=== PATIENT | male | born 1955 | race Caucasian/White ===

== ENCOUNTER 2018-10-30 10:40 | Observation (INO) | payer OTHER ==
[~2018-10-30] VITALS: Ht 167.6 cm; Wt 90.7 kg
[2018-11-11] MEDS ORDERED: ADULT ASPIRIN R81 MG PO (06:01)
[2018-11-11] MEDS ORDERED: HYDROCHLOROTHIA25 MG PO (06:02)
[2018-11-11] MEDS ORDERED: LISINOPRIL10 MG PO (06:02)
[2018-11-11] MEDS ORDERED: LIPITOR20 MG PO (06:02)
[2018-11-11] MEDS ORDERED: CALCIUM + VITA1 EACH PO (06:02)
--- NOTE | 2018-11-11 06:26 | NUR ---
CHG MOUTH RINSE AND NASAL SWAB COMPLETE.
--- NOTE | 2018-11-11 07:07 | NUR ---
THIS RN PRESENT WITH DUANE MONTES FOR LEFT INTERSCALENE BLOCK. PATIENT TOLERATES THAT PROCEDURE WELL.
--- NOTE | 2018-11-11 09:27 | NUR ---
11/11/18 0927 Sirisha Franco [id number]-PATIENT ARRIVED TO PACU ON 6L MASK REACTIVE TO VOICE OPENING EYES DENIES PAIN OR NAUSEA WHEN ASKED. VERY DROWSY ABLE TO WIGGLE FINGERS DENIES NUMBNESS OR TINGLING. DRESSING CDI SLING IN PLACE ICE APPLIED. PALPABLE LEFT RADIAL PULSE. GUARDS AT BEDSIDE. RR EVEN.
--- NOTE | 2018-11-11 10:09 | NUR ---
CRACKERS, PUDDING, APPLESAUCE, CRACKERS AND ICED WATER GIVEN. SANDWICH ORDERED FROM DIETARY. PATIENT EATING AND DRINKING AND TOLERATING THAT WELL. OXYGEN REMOVED AT THIS TIME.
[2018-11-11] MEDS ORDERED: ULTRAM50 MG PO (10:39)
[2018-11-11] MEDS ORDERED: NORCO 10-325 T1 EACH PO (10:39)
--- NOTE | 2018-11-11 11:13 | NUR ---
COFFEE GIVEN BY OFFICER. PATIENT EATS THE SANDWICH AND IS DRINKING AND TOLERATING THAT WELL. PATIENT DENIES ADDITIONAL NEEDS @ THIS TIME.
--- NOTE | 2018-11-11 12:18 | NUR ---
LE NOON: PATIENT GIVEN DISCHARGE INSTRUCTIONS AND HE VERBALIZES UNDERSTANDING. PATIENT GETTING DRESSED IN OFFICER PRESENCE. 1215: CALL REPORT GIVEN TO MELISSA SWENSON AT [facility] AND HER QUESTIONS ARE ANSWERED.
--- NOTE | 2018-11-12 08:49 | OR ---
[facility] [address] [place], [place] [address] Signed DATE OF OPERATION: 11/11/2018 SURGEON: Antonio Waller MD PREOPERATIVE DIAGNOSIS: End-stage cuff tear arthropathy, left shoulder. POSTOPERATIVE DIAGNOSIS: End-stage cuff tear arthropathy, left shoulder. PROCEDURE PERFORMED: Reverse total shoulder arthroplasty, left. ANESTHESIA: General. SPECIMENS AND COMPLICATIONS: There were no specimens or complications. BLOOD LOSS: About 100 mL. WHAT WAS DONE: The patient was taken to the operating room. After anesthesia was induced and the airway secured, the patient was positioned, prepped and draped in a routine sterile fashion. An anterior deltopectoral incision was made through skin and subcutaneous tissue. Deep fascia was incised in line with the skin incision. The cephalic vein was identified and the deltopectoral interval was opened with the tip of the glove finger. The vein was taken laterally and a self-retaining retractor placed. We then identified the long head of the biceps tendon, opened up the bicipital groove and tagged the tendon. As there was no loss of external rotation, we did not release any pectoralis major. We then allowed the long-head of the biceps to retract with a stay suture. We then used electrocautery to elevate the subscapularis off the lesser tuberosity. We then continued the dissection until the entire subscapularis had been released. We identified the musculocutaneous nerve and the axillary nerve with palpation and carefully protected them. We then peeled the capsule off the inferior aspect of the humeral head. We allowed the subscapularis tendon to retract and were able to deliver the humeral head into the wound. We placed a guide drill hole just about the level of the bicipital groove. We then reamed the proximal humerus and had a fairly snug fit with a 12 mm drill. We then put in the resection guide and positioned it in about 20 Electronically Signed By: ANTONIO WALLER MD 11/12/18 0849 PATIENT NAME: BRAEDEN FERRARI OPERATIVE REPORT DATE OF : 57 REPORT #: [id number] PHYSICIAN: ANTONIO WALLER MD PCP: ARIAN ALSTON MD REPORT IS CONFIDENTIAL AND NOT TO BE RELEASED WITHOUT AUTHORIZATION [facility] [address] [place], [place] [address] Signed degrees of retroversion. We then resected the humeral head and delivered it off the field. We then removed the medial osteophytes and continued using primarily blunt dissection to peel the rest of the capsule off the inferior aspect of the humeral neck until we could mobilize the head adequately. We then placed the protector on the top of the humerus and retracted it posteriorly. We placed retractors around the glenoid and used electrocautery to remove the remaining portion of the labrum. We then placed the guide on the glenoid and drilled the central guide pin. We then passed the standard reamer as there was an excellent amount of bone stock for the glenoid. We then used the Jesse device to remove any superior and inferior osteophytes. We then drilled the central hole and impacted the metaglene. We then secured the metaglene with locking screws superiorly and inferiorly and nonlocking screws anteriorly and posteriorly. We then put the standard glenosphere on the metaglene and secured it. The proximal humerus was then brought up into the wound and we again placed the guide in 20 degrees of retroversion. We then passed the standard reamer over the standard neck. We used a rongeur to remove the extra bone left by the reamer. We then impacted the trial, tried with a 3 and then a 6 mm poly head and were happy with a 6 mm poly head in terms of range of motion and stability. We therefore removed the trials. We impacted the real humeral component and then the real 6 mm poly and reduced the shoulder. We again were happy with the alignment and position. The wound was copiously irrigated with the Irrisept and then routine wound closure was accomplished including tenodesis of the biceps just by the pectoralis major tendon. The wound was closed. Sterile dressings applied. He was placed in a sling, awakened, taken to recovery room where he arrived in stable condition. Counts were correct. Antibiotic protocols were followed. MD ANGIE RodríguezB/MODL /[id number] Copies: ~ Electronically Signed By: ANTONIO WALLER MD 11/12/18 0849 PATIENT NAME: BRAEDEN FERRARI OPERATIVE REPORT DATE OF : 57 REPORT #: [id number] PHYSICIAN: ANTONIO WALLER MD PCP: ARIAN ALSTON MD REPORT IS CONFIDENTIAL AND NOT TO BE RELEASED WITHOUT AUTHORIZATION
== END 2018-11-11 12:05 | disposition home or self-care (01) ==
LOC: DSVR 11-11 05:51 → MS 11-11 05:51 → DSVR 11-11 05:51 → MS 11-11 06:45 → DSVR 11-11 12:05
PROVIDERS: ADMIT Orthopaedic Surgery
PROC: 3E0T3BZ Introduction of Anesthetic Agent into Peripheral Nerves and Plexi, Percutaneous Approach (ICD-10-PCS; 2018-11-11)
PROC: 3E0T33Z Introduction of Anti-inflammatory into Peripheral Nerves and Plexi, Percutaneous Approach (ICD-10-PCS; 2018-11-11)
PROC: 0RRK00Z Replacement of Left Shoulder Joint with Reverse Ball and Socket Synthetic Substitute, Open Approach (ICD-10-PCS; principal; 2018-11-11 06:45)
DX: M75.102 Unspecified rotator cuff tear or rupture of left shoulder, not specified as traumatic (principal); G89.18 Other acute postprocedural pain; M19.012 Primary osteoarthritis, left shoulder; I10 Essential (primary) hypertension; E78.00 Pure hypercholesterolemia, unspecified; Z87.891 Personal history of nicotine dependence; Z79.82 Long term (current) use of aspirin; Z79.899 Other long term (current) drug therapy; Z86.19 Personal history of other infectious and parasitic diseases
CPT/HCPCS: 01638; 64415; 73020; 76942; C1713; C1776; J0330; J0690; J1100; J1885; J2250; J2405; J2704; J2795; J7120

== ENCOUNTER 2018-12-16 15:52 | Emergency (ER) | payer OTHER ==
[~2018-12-16] VITALS: Ht 167.6 cm; Wt 90.7 kg
[~2018-12-16 15:52] MED LIST: ADULT ASPIRIN R81 MG PO; CALCIUM + VITA1 EACH PO; HYDROCHLOROTHIA25 MG PO; LIPITOR20 MG PO; LISINOPRIL10 MG PO; NORCO 10-325 T1 EACH PO; ULTRAM50 MG PO
--- NOTE | 2018-12-17 08:04 | CONS ---
[facility] [address] [place], [place] [address] Signed DATE OF CONSULTATION: REQUESTED BY: Emergency room physician. HISTORY OF PRESENT ILLNESS: Mr. Ferrari is a 63-year-old white male, who had a reverse total shoulder done about a month ago. He said that he was not doing anything at all, but he had been having some shoulder pain for the last week or so. He did admit that sometimes people "bump into him," but otherwise he did not recall any specific trauma. He apparently was seen in medical out of the longterm today and x-ray showed he had dislocated his reverse total shoulder. PHYSICAL EXAMINATION: GENERAL: In the emergency room today, there is no obvious cosmetic deformity because of his body habitus. NEUROLOGIC: His neurovascular exam is unremarkable. DIAGNOSTIC DATA: X-rays in the longterm do show a superior dislocation. ASSESSMENT AND PLAN: After outlining our plan along with potential risks and complications, he was comfortable with an attempted closed reduction. The Anesthesia Service was consulted and he was given a propofol bolus. Once he appeared adequately relaxed, it was relatively easy to reduce the shoulder. Little longitudinal traction and medialization of the proximal segment seem to reduce the shoulder. A single AP x-ray was taken, which confirmed a concentric reduction identical to his postoperative films. He was placed in a shoulder immobilizer. We will have him continue with the shoulder immobilizer for six weeks and follow up with us in six weeks with new x-rays out of the longterm. MD ADAM Rodríguez/ANURADHAL /[id number] Copies: Electronically Signed By: SANJEEV CHAPMAN MD 12/17/18 0804 PATIENT NAME: BRAEDEN FERRARI CONSULTATION DATE OF : 57 REPORT #: [id number] PHYSICIAN: SANJEEV CHAPMAN MD PCP: ARIAN ALSTON MD REPORT IS CONFIDENTIAL AND NOT TO BE RELEASED WITHOUT AUTHORIZATION [facility] [address] [place], [place] [address] Signed ~ Electronically Signed By: SANJEEV CHAPMAN MD 12/17/18 0804 PATIENT NAME: BRAEDEN FERRARI CONSULTATION DATE OF : 57 REPORT #: [id number] PHYSICIAN: SANJEEV CHAPMAN MD PCP: ARIAN ALSTON MD REPORT IS CONFIDENTIAL AND NOT TO BE RELEASED WITHOUT AUTHORIZATION
== END 2018-12-16 19:30 | disposition home or self-care (01) ==
LOC: ED 15:52
DX: T84.028A Dislocation of other internal joint prosthesis, initial encounter (principal); I10 Essential (primary) hypertension; Z85.22 Personal history of malignant neoplasm of nasal cavities, middle ear, and accessory sinuses; Z87.891 Personal history of nicotine dependence; Z91.018 Allergy to other foods; Z79.82 Long term (current) use of aspirin; Z79.899 Other long term (current) drug therapy
CPT/HCPCS: 73020; 73030; 96361; 96374; 99283-25; J2704; J7120